=== PATIENT | male | born 1960 | race Caucasian/White ===

== ENCOUNTER 2017-04-15 13:18 | Outpatient (CLI) | payer BC | END 2017-04-15 13:19 | disposition short-term general hospital (02) | LOC: EMS 13:18 | PROVIDERS: ATTEND Surgery | DX: R07.89 Other chest pain (principal); R68.83 Chills (without fever); R53.1 Weakness | CPT/HCPCS: A0425; A0427 ==

== ENCOUNTER 2018-05-02 09:23 | Day surgery (SDC) | payer OTHER ==
[2018-05-02] MEDS ORDERED: LACTATED RINGERS 1,000 ML IV ONE (09:48)
[2018-05-02] MEDS ORDERED: MIDAZOLAM 2 MG/2 ML VIAL IVP ONE (10:40)
[2018-05-02] MEDS ORDERED: fentaNYL 250 MCG/5 ML VIAL IVP ONE (10:40)
[2018-05-02 11:46] VITALS: BP 128/72
== END 2018-05-02 09:24 | disposition home or self-care (01) ==
LOC: SDS 09:23
PROVIDERS: ATTEND Surgery
PROC: 0DBN8ZZ Excision of Sigmoid Colon, Via Natural or Artificial Opening Endoscopic (ICD-10-PCS; 2018-05-02)
PROC: 0DBP8ZZ Excision of Rectum, Via Natural or Artificial Opening Endoscopic (ICD-10-PCS; 2018-05-02)
PROC: 0DBN8ZZ Excision of Sigmoid Colon, Via Natural or Artificial Opening Endoscopic (ICD-10-PCS; 2018-05-02)
PROC: 3E0H8GC Introduction of Other Therapeutic Substance into Lower GI, Via Natural or Artificial Opening Endoscopic (ICD-10-PCS; 2018-05-02)
PROC: 0DBP8ZZ Excision of Rectum, Via Natural or Artificial Opening Endoscopic (ICD-10-PCS; principal; 2018-05-02 10:30)
DX: R19.4 Change in bowel habit (principal); R10.9 Unspecified abdominal pain; D12.5 Benign neoplasm of sigmoid colon; K62.1 Rectal polyp; J43.9 Emphysema, unspecified; F17.210 Nicotine dependence, cigarettes, uncomplicated
CPT/HCPCS: 45381; 45384; 45385; J7120

== ENCOUNTER 2021-01-17 18:16 | Emergency (ER) | payer OTHER ==
[2021-01-17 18:27] VITALS: BP 135/86
[2021-01-17] MEDS ORDERED: CLINDAMYCIN 150 MG CAPSULE PO STA (18:51)
--- NOTE | 2021-01-17 18:53 | ED Physician Documentation ---
History of Present Illness - Stated complaint Stated Complaint: LIP LAC - Chief complaint Chief Complaint: Abd Pain - History obtained from History obtained from: Patient (He was working outside and sustained a puncture wound to the left side of the lower lip at home just prior to arrival. Tetanus is up-to-date.) Review of Systems Constitutional: denies: Fever, Chills Eyes: denies: Loss of vision, Decreased vision PD PAST MEDICAL HISTORY - Past Medical History Past Medical History: Yes Cardiovascular: None Respiratory: Emphysema Neuro: None Endocrine/Autoimmune: None GI: GERD : Frequency HEENT: None Psych: None Musculoskeletal: Chronic back pain Derm: None - Past Surgical History Past Surgical History: No General: Other - Present Medications Home Medications: Ambulatory Orders Medication Instructions Recorded Confirmed clindamycin HCL [Cleocin HCl] 300 mg PO QID #20 cap 01/17/21 - Allergies Allergies/Adverse Reactions: Allergies Allergy/AdvReac Type Severity Reaction Status Date / Time bee venom protein (honey bee) Allergy Hives Verified 01/17/21 18:27 Penicillins Allergy Unknown Verified 01/17/21 18:27 - Social History Does the pt smoke?: Yes Smoking Status: Current every day smoker Does the pt drink ETOH?: Yes ETOH Use: Liquor Does the pt have substance abuse?: No - Immunizations Immunizations are current?: No Immunizations: TDAP >10years/unknown - POLST Patient has POLST: No PD ED PE NORMAL - Vitals Vital signs reviewed: Yes - General General: Alert and oriented X 3, No acute distress - HEENT HEENT: Other (There is a through and through laceration of the left lower lip, the external component is a little over a centimeter. The internal component is quite small. No loose teeth.) - Neck Neck: Supple, no meningeal sign, No bony TTP Results - Vitals Vitals: Vital Signs - 24 hr 01/17/21 18:24 Temperature 36.6 C Heart Rate 77 Respiratory 16 Rate Blood Pressure 135/86 H O2 Saturation 95 Oxygen O2 Source Room air Procedures - Laceration (location) lip Length in cm: 1 Wound type: Linear, Involvement of free margins of vermilion border Anesthesia: Lidocaine 1% with epi Wound preparation: Irrigated copiously NS Skin layer closure: Nylon, Interrupted, Size #-0 - enter number (6-0), Sutures - enter # (3) Other: Tetanus UTD PD MEDICAL DECISION MAKING - ED course ED course: 60-year-old gentleman with who is mildly intoxicated with a through and through lip laceration. The outer part was sutured starting with the vermilion border. He is placed on clindamycin noting penicillin allergy. Departure - Departure Disposition: 01 Home, Self Care Clinical Impression: Lip laceration Qualifiers: Encounter type: initial encounter Qualified Code(s): S01.511A - Laceration without foreign body of lip, initial encounter Condition: Good Record reviewed to determine appropriate education?: Yes Instructions: ED Laceration Mouth Prescriptions: clindamycin HCL [Cleocin HCl] 300 mg PO QID #20 cap Comments: Do not drive tonight. Come back for any signs of infection which would include: Redness, swelling, drainage, increased pain, or fevers. You can wash it soap and water. Keep it covered and moist with bacitracin ointment which is available over the counter; avoid neosporin. Follow-up with your physician in 6-7 days for suture removal.
== END 2021-01-17 19:02 | disposition home or self-care (01) ==
LOC: ED 18:16
DX: S01.511A Laceration without foreign body of lip, initial encounter (principal); W22.8XXA Striking against or struck by other objects, initial encounter; Y93.89 Activity, other specified; Y92.89 Other specified places as the place of occurrence of the external cause; Y99.8 Other external cause status; F17.200 Nicotine dependence, unspecified, uncomplicated
CPT/HCPCS: 12011; 99282; 99283; A9270